=== PATIENT | female | born 1985 | race Caucasian/White ===

== ENCOUNTER 2024-10-12 18:21 | Emergency (ER) | payer OTHER, SELFPAY ==
[2024-10-12 18:31] VITALS: BP 157/96; PULSE 85; RESP 15; TEMP 36.8; O2SAT 100; BMI 31.2
--- NOTE | 2024-10-12 18:33 | XR_ITS ---
PROCEDURE INFORMATION: Exam: XR Left Foot Exam date and time: 10/12/2024 7:12 PM Age: 39 years old Clinical indication: Pain; Foot; Left TECHNIQUE: Imaging protocol: Radiologic exam of the left foot. Views: 3 or more views. COMPARISON: No relevant prior studies available. FINDINGS: Bones/joints: No fracture or malalignment appreciated. Small calcification at the Achilles tendon insertion. Soft tissues: Normal. IMPRESSION: No acute findings.
--- NOTE | 2024-10-12 18:36 | ED_ITS ---
<Statement entered by Olman Suarez MD - 10/13/24 03:19> I was consulted by the DENNISE, and we discussed the complexity of the problems being addressed. I approve the treatment and management plan for this patient's care in the emergency department, thus performing a substantive portion of the medical decision making. Olman Suarez MD Discharge Plan Disposition Patient Disposition: Home, Self-Care Prescriptions Prescriptions: No Action clonazepam 0.5 mg tablet PO sertraline 100 mg tablet PO Patient Comments: TAKE 1.5 TABLETS BY MOUTH EVERY DAY Zepbound 5 mg/0.5 mL pen injector SQ Patient Comments: ADMINISTER 5 MG UNDER THE SKIN 1 TIME A WEEK methylprednisolone [Medrol (Néstor)] 4 mg tablets,dose pack See Rx Instructions PO PER PKG DIR Qty: 21 0RF Rx Instructions: PO PER PKG DIR for 6 days fluticasone propionate [Flonase Allergy Relief] 50 mcg/actuation spray,suspension 2 spray intranasal DAILY Qty: 16 2RF Rx Instructions: administer into each nostril daily amoxicillin-pot clavulanate 875-125 mg tablet 1 tab PO BID 10 Days Qty: 20 0RF Referrals Follow up/Referrals: Azalia Pineda APRN [Primary Care Provider, Medical] - See instructions Activity Restrictions/Add. Instructions Additional Instructions/Restrictions: Please follow-up and do outpatient DVT ultrasound. Follow-up with your PCP for further imaging if needed. Take ibuprofen and Tylenol as needed for pain and swelling. Ice and elevate left foot. Return to the ED for further problems or concerns. Clinical Impressions Clinical Impression: Acute foot pain, Edema Instructions Patient Instructions: Sprain, DI for Foot Pain, Edema Print Language Print Language: Occitan Discharge ED Provider: Olman Suarez General Adult HPI <Beena Munoz (ED), ANIMAL HUMANE AGENT SUPERVISOR - Last Filed: 10/12/24 22:42> General Chief complaint: Extremity Injury, Lower Stated complaint: AO 8-12 left leg foot pain and brus. Time Seen by Provider: 10/12/24 18:26 History of Present Illness HPI narrative: 39-year-old female presents to the ED today for complaint of dropping a welding tank on her left foot yesterday. She has 8 out of 10 pain. She has obvious bruising and redness. She also has a bruise on the medial left knee. She says she noticed this the other day. She says that it is painful at times. She has no pain right at this moment. She says that her family has history of DVTs and PEs and she is concerned about this. She has no personal history of clots. She has no chest pain or shortness of breath. Patient has no recent fevers or chills. No nausea, vomiting or diarrhea. No injury to that left medial knee. She says it used to be a spider vein. Related Data Home Medications ?Medication ?Instructions ?Recorded ?Confirmed clonazepam 0.5 mg tablet mg PO 07/30/24 07/30/24 sertraline 100 mg tablet mg PO 07/30/24 07/30/24 tirzepatide (weight loss) 5 mg/0.5 mg SQ 07/30/2407/02 mL subcutaneous pen injector (Zepbound) Previous Rx's ?Medication ?Instructions ?Recorded amoxicillin 875 mg-potassium 1 tab PO BID 10 days #20 tabs 07/30/24 clavulanate 125 mg tablet fluticasone propionate 50 2 spray intranasal DAILY #16 grams 07/30/24 mcg/actuation nasal spray,suspension (Flonase Allergy Relief) methylprednisolone 4 mg tablets in See Rx Instructions PO PER PKG DIR 07/30/24 a dose pack (Medrol (Nétsor)) #21 tabs Allergies Allergy/AdvReac Type Severity Reaction Status Date / Time No Known Allergies Allergy Verified 07/30/24 14:38 [facility] <Beena Munoz (BERNARDA), ANIMAL HUMANE AGENT SUPERVISOR - Last Filed: 10/12/24 22:42> [facility] Disclaimer: The information contained in this section may have been updated after the patient was seen, as this information can be updated by other users. Medical History (Updated 10/12/24 @ 20:24 by Beena Munoz (ED), ANIMAL HUMANE AGENT SUPERVISOR) Sinusitis Social History (Updated 07/30/24 @ 14:39 by MOISES Penaloza) Smoking Status: Current every day smoker alcohol intake: current current occupational status: employed Travel in the last 8 weeks?: None Have you lived/traveled outside [place] in past 30 days?: No Contact w/someone who lives/traveled outside US past 30 days?: No Exposure to someone with infectious disease in past 14 days?: No Do you have a fever (greater than 100.4 F or 38 C)?: No Have you tested positive for COVID-19?: No Exposed to someone with COVID-19 in past 14 days?: No Do you have a sore throat?: No Do you have a cough?: No Do you have any weakness?: No Do you have any diarrhea?: No Are you experiencing any unusual bleeding?: No Do you have any muscle aches/pain?: No Do you have any abdominal pain?: No Are you experiencing loss of taste or smell?: No <Beena Munoz (ED), ANIMAL HUMANE AGENT SUPERVISOR - Last Filed: 10/12/24 22:42> ROS Obtained: Yes Systems reviewed as appropriate & no additional complaints except as documented Constitutional Constitutional: Reports as per HPI Physical Exam <Beena Munoz (ED), ANIMAL HUMANE AGENT SUPERVISOR - Last Filed: 10/12/24 22:42> General General appearance: alert and in no apparent distress Head Head exam: normocephalic Eye Eye exam: Present PERRL and EOMI ENT ENT exam: Present mucous membranes moist Neck Neck exam: Present full ROM and trachea midline Respiratory Respiratory exam: Present normal lung sounds bilaterally Cardiovascular Cardiovascular exam: Present regular rate, normal rhythm, normal heart sounds, +S1 and +S2 Extremities Exam Extremities exam: Present full ROM, tenderness (Left medial knee with bruising and tenderness, left foot was swelling and erythema), normal capillary refill and edema Neurological Exam Neurological exam: Present alert and oriented X3 Skin Skin exam: Present warm and dry Medical Decision Making <Beena Munoz (ED), ANIMAL HUMANE AGENT SUPERVISOR - Last Filed: 10/12/24 22:42> Medical Records Screening: Per USPSTF and CDC recommendations, given the prevalence of disease in our region, it is our hospital?s policy to screen for HIV and viral Hepatitis for all patients aged 18 and over and those with ongoing risk factors. Gavino Inquiry Pt receiving controlled substance: No Gavino was queried for this patient: No Vital Signs: 10/12/24 18:31 10/12/24 20:25 Temperature 98.3 F 97.9 F Temperature Source Oral Oral Pulse Rate 64 Pulse Rate [Right Radial] 85 Respiratory Rate 15 16 Blood Pressure 112/74 Blood Pressure [Right Arm] 157/96 H Blood Pressure Mean [Right Arm] 116 Blood Pressure Source [Right Arm] Automatic Cuff Blood Pressure Position [Right Arm] Supine 02 Sat by Pulse Oximetry 100 Oxygen Delivery Method Room Air Room Air Lab Data Lab Results 10/12/24 18:44: WBC 6.4, RBC 3.81 L, Hgb 11.5 L, Hct 33.4 L, MCV 87.7, MCH 30.2, MCHC 34.4, RDW 12.9, Plt Count 211, MPV 11.0 H, Neut % (Auto) 61.7, Lymph % (Auto) 27.2, Pike % (Auto) 6.6, Eos % (Auto) 3.4, Baso % (Auto) 0.9, Neut # (Auto) 3.9, Lymph # (Auto) 1.7, Pike # (Auto) 0.4, Eos # (Auto) 0.2, Baso # (Auto) 0.1, D-Dimer 1.04 H, Sodium 138, Potassium 3.2 L, Chloride 108 H, Carbon Dioxide 27, Anion Gap 6.2, BUN 6 L, Creatinine 0.60, Estimated Creat Clear 198, Estimated GFR 110, Est GFR ( Amer) 133, Glucose 105 H, Calcium 8.4, Magnesium 1.8, Total Bilirubin 0.2, AST 20, ALT 15, Alkaline Phosphatase 79, Troponin I < 0.01, Total Protein 5.9 L, Albumin 3.5, Globulin 2.4, Albumin/Globulin Ratio 1.5, Lipase 88, HCV Ab RAOUL w/Rflx PCR Qn Negative, HIV Ag/Ab Combo Qual Negative 10/12/24 18:44 10/12/24 18:44 Orders (Tests/Meds): ED MEDICATIONS Discontinued Medications Generic Name Dose Route Start Last Admin Trade Name Freq PRN Reason Stop Dose Admin Hydrocodone Bitart/Acetaminophen 2 tab 10/12/24 18:35 10/12/24 18:42 Hydrocodone/Apap 5/325 Mg Tablet PO 10/12/24 18:36 Not Given ONCE ONE Ibuprofen 800 mg 10/12/24 18:43 10/12/24 18:55 Ibuprofen 800 Mg Tablet PO 10/12/24 18:44 800 mg ONCE ONE Administration Potassium Chloride 60 meq 10/12/24 19:25 10/12/24 19:58 Potassium Chloride 20meq Tab PO 10/12/24 19:26 60 meq ONCE ONE Administration ORDERS Category Date Time Status Foot XR left minimum 3 views [XR foot LT min 3V] Stat Exams 10/12/24 18:33 Completed POCUS Point of Care (ER Only) Stat Exams 10/12/24 18:33 Completed CBC [Complete Blood Count Auto Diff] Stat Lab 10/12/24 18:44 Completed Comprehensive Metabolic Panel Stat Lab 10/12/24 18:44 Completed D-Dimer Stat Lab 10/12/24 18:44 Completed HIV Combo Stat Lab 10/12/24 18:44 Completed Hepatitis C Ab Qual. W/ RFX Stat Lab 10/12/24 18:44 Completed Lipase Stat Lab 10/12/24 18:44 Completed Magnesium Stat Lab 10/12/24 18:44 Completed Trop I [Troponin I] Stat Lab 10/12/24 18:44 Completed Medical Decision Narrative: patient is a 39-year-old female presenting to the emergency department for evaluation of left foot pain after dropping a welding tank on her foot yesterday and left medial knee bruising with concern for DVT. Patient is hemodynamically stable and nontoxic-appearing upon arrival, afebrile. Differential diagnosis includes DVT, crush injury to left foot, among others. Workup will be conducted with hematologic labs, specific imaging. Initial inventions include analgesics. Initial workup reviewed by me hematologic labs are remarkable for elevated D- dimer however discussed with Dr. Malone who agrees that we can do an outpatient formal ultrasound. His POCUS ultrasound ruled out a clot but still want to be safe in the outpatient formal ultrasound. Patient has no shortness of breath or chest pain. She has no obvious signs of PE no tachycardia no hemoptysis no other signs or symptoms.. POCUS was negative for DVT of left leg. X-ray was negative of left foot. Please see formal read. Patient and I discussed following up with her PCP for any worsening pain or problems. She will do the outpatient DVT ultrasound. She will follow-up with her PCP for further imaging if needed. <Olman Suarez MD - Last Filed: 10/12/24 19:14> Vital Signs: 10/12/24 18:31 10/12/24 20:25 Temperature 98.3 F 97.9 F Temperature Source Oral Oral Pulse Rate 64 Pulse Rate [Right Radial] 85 Respiratory Rate 15 16 Blood Pressure 112/74 Blood Pressure [Right Arm] 157/96 H Blood Pressure Mean [Right Arm] 116 Blood Pressure Source [Right Arm] Automatic Cuff Blood Pressure Position [Right Arm] Supine 02 Sat by Pulse Oximetry 100 Oxygen Delivery Method Room Air Room Air Lab Data Lab Results 10/12/24 18:44: WBC 6.4, RBC 3.81 L, Hgb 11.5 L, Hct 33.4 L, MCV 87.7, MCH 30.2, MCHC 34.4, RDW 12.9, Plt Count 211, MPV 11.0 H, Neut % (Auto) 61.7, Lymph % (Auto) 27.2, Pike % (Auto) 6.6, Eos % (Auto) 3.4, Baso % (Auto) 0.9, Neut # (Auto) 3.9, Lymph # (Auto) 1.7, Pike # (Auto) 0.4, Eos # (Auto) 0.2, Baso # (Auto) 0.1, D-Dimer 1.04 H, Sodium 138, Potassium 3.2 L, Chloride 108 H, Carbon Dioxide 27, Anion Gap 6.2, BUN 6 L, Creatinine 0.60, Estimated Creat Clear 198, Estimated GFR 110, Est GFR ( Amer) 133, Glucose 105 H, Calcium 8.4, Magnesium 1.8, Total Bilirubin 0.2, AST 20, ALT 15, Alkaline Phosphatase 79, Troponin I < 0.01, Total Protein 5.9 L, Albumin 3.5, Globulin 2.4, Albumin/Globulin Ratio 1.5, Lipase 88, HCV Ab RAOUL w/Rflx PCR Qn Negative, HIV Ag/Ab Combo Qual Negative Orders (Tests/Meds): ED MEDICATIONS Discontinued Medications Generic Name Dose Route Start Last Admin Trade Name Freq PRN Reason Stop Dose Admin Hydrocodone Bitart/Acetaminophen 2 tab 10/12/24 18:35 10/12/24 18:42 Hydrocodone/Apap 5/325 Mg Tablet PO 10/12/24 18:36 Not Given ONCE ONE Ibuprofen 800 mg 10/12/24 18:43 10/12/24 18:55 Ibuprofen 800 Mg Tablet PO 10/12/24 18:44 800 mg ONCE ONE Administration Potassium Chloride 60 meq 10/12/24 19:25 10/12/24 19:58 Potassium Chloride 20meq Tab PO 10/12/24 19:26 60 meq ONCE ONE Administration ORDERS Category Date Time Status Foot XR left minimum 3 views [XR foot LT min 3V] Stat Exams 10/12/24 18:33 Completed POCUS Point of Care (ER Only) Stat Exams 10/12/24 18:33 Completed CBC [Complete Blood Count Auto Diff] Stat Lab 10/12/24 18:44 Completed Comprehensive Metabolic Panel Stat Lab 10/12/24 18:44 Completed D-Dimer Stat Lab 10/12/24 18:44 Completed HIV Combo Stat Lab 10/12/24 18:44 Completed Hepatitis C Ab Qual. W/ RFX Stat Lab 10/12/24 18:44 Completed Lipase Stat Lab 10/12/24 18:44 Completed Magnesium Stat Lab 10/12/24 18:44 Completed Trop I [Troponin I] Stat Lab 10/12/24 18:44 Completed Procedures <Olman Suarez MD - Last Filed: 10/12/24 19:14> Limited Ultrasound Interpretation:: Indication: Limited compression ultrasonography of the left lower extremity was performed to evaluate for non-compressibility of the deep veins in the patient. The ultrasound was performed with the following indications, as noted in the H&P: Left leg pain and bruising Identified structures: Left common femoral vein, femoral vein, popliteal vein were examined. Findings: Lower Extremity: Left CFV: Good compressibility Left FV good compressibility Left Popliteal vein: Good compressibility Impression: Normal DVT ultrasound Images were saved to permanent archive The study was technically adequate CPT: 20930-40-AX This study was performed by me, and I personally interpreted all images/videos. Based on my clinical judgement, these images were adequate and did not necessitate further imaging. Critical Care <Beena Munoz (BERNARDA), ANIMAL HUMANE AGENT SUPERVISOR - Last Filed: 10/12/24 22:42> Critical Care Time Critical Care Time: No
[2024-10-12] MEDS: IBUPROFEN 800 MG TABLET PO (18:55)
[2024-10-12 18:56] LABS: Hematocrit 33.4 % (37.0-47.0); Hemoglobin 11.5 g/dL (12.2-16.2); Immature Granulocytes % 0.2 %; Mean Corpuscular HGB Conc 34.4 g/dL (31.8-35.4); Mean Corpuscular Hemoglobin 30.2 pg (27.0-31.2); Mean Corpuscular Volume 87.7 fl (81-99); Nucleated Red Blood Cells % 0 %; Platelet Count 211 K/mm3 (142-424); Red Blood Count 3.81 M/mm3 (4.20-5.40); Red Cell Distribution Width-SD 41.0 fL; White Blood Count 6.4 K/mm3 (4.8-10.8)
[2024-10-12 19:06] LABS: Alanine Aminotransferase 15 U/L (12-78); Albumin Level 3.5 g/dl (3.5-5.0); Albumin/Globulin Ratio 1.5 (1.1-1.8); Alkaline Phosphatase 79 U/L (38-126); Anion Gap 6.2 mEq/L (5-15); Aspartate Amino Transferase 20 U/L (14-36); Bilirubin,Total 0.2 mg/dl (0.2-1.3); Blood Urea Nitrogen 6 mg/dl (7-17); Calcium 8.4 mg/dl (8.4-10.2); Carbon Dioxide 27 mmol/L (22.0-30.0); Chloride 108 mmol/L (98-107); Creatinine Clearance Estimated 198 mL/min (50-200); Creatinine,Serum 0.60 mg/dl (0.52-1.04); Estimated Glomerular Filt Rate 110 ml/min (>60); GFR (African American) 133 ML/MIN (>60); Globulin 2.4 g/dL (1.3-3.2); Glucose 105 mg/dl (74-100); Lipase 88 U/L (23-300); Magnesium 1.8 mg/dl (1.6-2.3); Potassium 3.2 mmoL/L (3.5-5.1); Sodium 138 mmol/L (136-145); Total Protein,Serum 5.9 g/dl (6.3-8.2)
[2024-10-12 19:10] LABS: D-Dimer 1.04 ug/mL (0.0-0.5)
[2024-10-12 19:20] LABS: Troponin I < 0.01 ng/ml (0.00-0.034)
[2024-10-12] MEDS: POTASSIUM CHLORIDE 20MEQ TAB 60 MEQ PO (19:58)
[2024-10-12 20:25] VITALS: BP 112/74; PULSE 64; RESP 16; TEMP 36.6; O2SAT 98
[2024-10-12 21:11] LABS: Hepatitis C Ab Qual. W/ RFX NEGATIVE (Negative)
== END 2024-10-12 20:45 | disposition home or self-care (01) ==
PROVIDERS: Nurse Practitioner; Emergency Provider Student in an Organized Health Care Education/Training Program; PCP Nurse Practitioner Family
DX: M79.672 Pain in left foot (principal); R60.0 Localized edema; F17.210 Nicotine dependence, cigarettes, uncomplicated
CPT/HCPCS: 73630; 80053; 83690; 83735; 84484; 85025; 85378; 86803; 87389; 99284

== ENCOUNTER 2024-11-20 09:32 | Emergency (ER) | payer OTHER, SELFPAY ==
[2024-11-20] VITALS (13 sets, daily range): BP systolic 117–144; BP diastolic 68–88; PULSE 58–82; RESP 16; TEMP 36.6–36.9; O2SAT 96–100; BMI 30.7
--- NOTE | 2024-11-20 09:58 | CT_ITS ---
PROCEDURE INFORMATION: Exam: CT Chest With Contrast; Diagnostic Exam date and time: 11/20/2024 11:34 AM Age: 39 years old Clinical indication: Other: Lump in neck, fatiigue, aches; Additional info: Lump in neck, subacute TECHNIQUE: Imaging protocol: Diagnostic computed tomography of the chest with contrast. Radiation optimization: All CT scans at this facility use at least one of these dose optimization techniques: automated exposure control; mA and/or kV adjustment per patient size (includes targeted exams where dose is matched to clinical indication); or iterative reconstruction. Contrast material: ISOVUE; Contrast volume: 75 ml; Contrast route: IV; COMPARISON: CT SOFT TISSUE NECK W CON 11/20/2024 11:27 AM FINDINGS: Thyroid: Thyroid gland appears enlarged. Contour is lobulated. 1.5 x 1.5 x 1.7 cm low-density nodule is present within the mid to upper pole of the right lobe of the thyroid. Small punctate calcification is present along the periphery of the left lobe of the thyroid. Follow-up thyroid ultrasound is recommended. Lungs: 4.5 mm pleural-based nodule within the posteromedial aspect of the right lung apex (image 14 of series 5). 2.5 mm nodule within the medial aspect of the right upper lobe (image 32 of series 5). 4.2 mm subpleural nodule within the periphery of the right upper lobe (image 35 of series 5). A 3 mm nodule within the inferior aspect of the right upper lobe (image 40 of series 5). Small 3 mm nodule within the medial aspect of the left upper lobe (image 24 of series 5). Small 2.1 mm nodule within the periphery of the left upper lobe (image 24 series 5). 2.2 mm nodule within the left upper lobe (image 46 of series 5). Small 11 mm bleb is present within the left lower lobe (image 56 of series 5). Bandlike atelectatic changes are present within the posteromedial aspect of the right and left lower lobe. Small 3.4 mm nodule or areas of postinflammatory change within the medial aspect of the left lower lobe (image 69 of series 5). Pleural spaces: No pleural effusion or pneumothorax. Heart: Heart size is normal. No pericardial effusion. Coronary arteries: No coronary artery calcifications identified. Lymph nodes: There are no enlarged supraclavicular lymph nodes. No mediastinal mass, lymphadenopathy or suspicious fluid collection. No hilar mass. Vasculature: Normal caliber of the ascending and descending thoracic aorta. Aortic arch appears unremarkable. No evidence for dissection. Origins of the great vessels are patent. Mild fullness of the main pulmonary artery. No central pulmonary embolism. This exam is not optimized to evaluate for pulmonary embolism. Kidneys: Dense material within the right and left renal collecting system more likely corresponds to contrast material. Heterogeneous appearance of the upper pole of the right kidney. Visualized portion of the right kidney appears somewhat atrophic. Bones/joints: There are no suspicious lytic or sclerotic bone lesions. No acute fracture. Soft tissues: No axillary mass or lymphadenopathy. Overlying soft tissues are unremarkable. IMPRESSION: 1. There are a few scattered small pulmonary nodule within the right and left lung as described. Largest measures up to 4.2 mm. For patients at low risk (minimal or absent history of smoking and of other known risk factors), no routine follow-up is indicated. For patients at high risk (history of smoking or of other known risk factors), consider CT Chest at 12 months or sooner depending on patient's underlying risk factors. (Reference: Miah) 2. Thyroid gland appears enlarged and slightly lobulated. Single low-density nodule is present within the mid to upper aspect of the right lobe of the thyroid. This measures up to 1.7 cm. Correlation with thyroid function tests and follow-up thyroid ultrasound is recommended. 3. No mediastinal mass or lymphadenopathy. 4. Please see report from CT scan of the abdomen and pelvis performed same day November 20, 2024 for additional information. COMMENTS: Consistent with the [place] [employer]'s Incidental Findings Committee white paper (J Am Susan Radiol 2015): In patients aged 35 years and older with an incidental thyroid nodule equal to or greater than 1.[address], MRI or extrathyroidal US, further evaluation with dedicated thyroid US is recommended for patients with normal life expectancy and without comorbidities. For smaller nodules without suspicious features, no further evaluation or follow up is recommended. REFERENCES: Miah Leon et al. Guidelines for Management of Incidental Pulmonary Nodules Detected on CT Images: From the Fleischner Society 2017. Radiology. 2017;284(1):228-243.
--- NOTE | 2024-11-20 09:58 | CT_ITS ---
PROCEDURE INFORMATION: Exam: CT Neck With Contrast Exam date and time: 11/20/2024 11:27 AM Age: 39 years old Clinical indication: Mass, lump, or swelling in neck; Anterior; Additional info: Lump adjacent to R thyroid TECHNIQUE: Imaging protocol: Computed tomography of the neck with contrast. Radiation optimization: All CT scans at this facility use at least one of these dose optimization techniques: automated exposure control; mA and/or kV adjustment per patient size (includes targeted exams where dose is matched to clinical indication); or iterative reconstruction. Contrast material: ISOVUE; Contrast volume: 75 ml; Contrast route: IV; COMPARISON: CT HEAD/BRAIN WO/W CON 11/20/2024 11:27 AM FINDINGS: Paranasal sinuses: Polypoid disease is noted in the floor of the right maxillary antrum. Nasal cavity: There is leftward convexity deviation of the nasal septum. Salivary glands: Normal. Glands are normal in size. Pharynx: Unremarkable. No significant tonsillar enlargement. Larynx: Unremarkable. Epiglottis is normal. Thyroid: There is nodular enlargement of the thyroid gland including a dominant hypodense lesion in the anterior midportion measuring 16 x 15 x 18 mm. Suggest correlation with thyroid ultrasound. Trachea: Visualized trachea is unremarkable. Lungs: Unremarkable as visualized. Lymph nodes: Unremarkable. No lymphadenopathy. Bones/joints: Unremarkable. No acute fracture. Soft tissues: Unremarkable. No significant soft tissue swelling. IMPRESSION: Nodular goiter. Please correlate with dedicated thyroid ultrasound. Otherwise no suspicious soft tissue mass, drainable fluid collection or lymphadenopathy in the neck.
--- NOTE | 2024-11-20 09:58 | CT_ITS ---
PROCEDURE INFORMATION: Exam: CT Abdomen And Pelvis With Contrast Exam date and time: 11/20/2024 11:34 AM Age: 39 years old Clinical indication: Other: Lump in neck, fatiigue, aches TECHNIQUE: Imaging protocol: Computed tomography of the abdomen and pelvis with contrast. Radiation optimization: All CT scans at this facility use at least one of these dose optimization techniques: automated exposure control; mA and/or kV adjustment per patient size (includes targeted exams where dose is matched to clinical indication); or iterative reconstruction. Contrast material: ISOVUE; Contrast volume: 75 ml; Contrast route: IV; COMPARISON: CT CHEST W CON 11/20/2024 11:34 AM FINDINGS: Diaphragm: No large hiatal hernia. Liver: Mild decreased density throughout the liver in keeping with fatty infiltration. No suspicious mass or lesion within the liver. Liver surface is smooth. Gallbladder and biliary ducts: The gallbladder is unremarkable. No biliary ductal dilatation. Common bile duct is normal in caliber. Pancreas: The pancreas is unremarkable. Spleen: Spleen is upper limits for normal in size measuring up to 14 cm in craniocaudal length. No suspicious mass or lesion within the spleen. Adrenal glands: No adrenal mass. Kidneys and ureters: Right kidney appears somewhat atrophic. Cortical margin is lobulated with several small cortical defects which may correspond to small prior infarcts, prior infection or prior trauma. Please correlate with patient's history. 1.8 cm exophytic cyst is present along the lower pole of the right kidney. 1.5 cm circumscribed cyst is present within the mid aspect of the left kidney. These appear benign. No solid suspicious renal mass. Contrast material is present within the right and left renal collecting system which limits evaluation for renal calculi. Heterogeneous enhancement and contour of the upper pole of the right kidney . No hydronephrosis. Ureters appear unremarkable. Stomach and bowel: Stomach appears unremarkable. There are a few scattered mildly distended small bowel loops within the left upper abdomen. Potential small duodenal diverticulum is present along the distal aspect of the duodenum. No evidence of a small bowel obstruction. There are a few scattered diverticula along the colon. No evidence for acute colitis or acute diverticulitis. Appendix: Normal appendix. Intraperitoneal space: No free fluid or free intraperitoneal air. Vasculature: The aorta is unremarkable . Major branch vessels are patent. Iliac arteries are patent. Lymph nodes: There are no enlarged or suspicious intra-abdominal or retroperitoneal lymph nodes. Minimally prominent right and left pelvic sidewall lymph nodes are present. No inguinal lymphadenopathy. Urinary bladder: Apparent mild circumferential bladder wall thickening. No focal mass or bladder calculus. Findings may correspond to mild bladder wall trabeculation. Please correlate with any clinical concern for urinary tract infection. Reproductive: Uterus appears unremarkable. No suspicious adnexal mass. Bones/joints: There are no suspicious lytic or sclerotic bone lesions. No acute fracture. No areas of severe central spinal canal stenosis. Soft tissues: Mild diastasis recti. No large ventral hernia. Abdominal wall musculature is symmetric. IMPRESSION: 1. No acute findings within the abdomen or pelvis. No focal inflammatory process or free fluid. No suspicious mass or suspicious lymphadenopathy. 2. Fatty liver. 3. Spleen measures up to 14.0 cm in craniocaudal length. No suspicious mass or lesion within the spleen. 4. Atrophic and lobulated appearance of the right kidney which may correspond to sequela of prior trauma, infection or prior infarct. Small bilateral renal cysts are present. No solid suspicious renal mass. Heterogeneous appearance of the upper pole of the right kidney may correspond to sequela of prior infection, ischemia or trauma. Please correlate with patient's history. 5. Minimal circumferential bladder wall thickening which is somewhat nonspecific and could correspond to bladder wall trabeculation. Please correlate with any clinical concern for cystitis. 6. Please see report from CT scan of the chest performed same day November 20, 2024 for additional information. COMMENTS: Consistent with the [employer]'s Incidental Findings Committee white paper (J Am Susan Radiol 2018): Any incidental renal lesion less than 1 cm or classified as too small to characterize, or any incidental cystic renal lesion characterized as simple-appearing, is likely benign. No follow-up imaging is recommended for these lesions per consensus recommendations based on imaging criteria.
--- NOTE | 2024-11-20 10:00 | CT_ITS ---
PROCEDURE INFORMATION: Exam: CT Head Without And With Contrast Exam date and time: 11/20/2024 11:27 AM Age: 39 years old Clinical indication: Other: Lump in neck, fatiigue, aches; Additional info: Rodas/lump in neck TECHNIQUE: Imaging protocol: Computed tomography of the head without and with contrast. Radiation optimization: All CT scans at this facility use at least one of these dose optimization techniques: automated exposure control; mA and/or kV adjustment per patient size (includes targeted exams where dose is matched to clinical indication); or iterative reconstruction. Contrast material: ISOVUE; Contrast volume: 75 ml; Contrast route: IV; COMPARISON: CT HEAD/BRAIN WO/W CON 11/20/2024 11:27 AM FINDINGS: Brain: No acute lobar infarct. No hemorrhage. Unremarkable white matter. No mass effect. Cerebral ventricles: No ventriculomegaly. Paranasal sinuses: Polypoid disease is noted in the floor of the right maxillary antrum. Mastoid air cells: Visualized mastoid air cells are well aerated. Bones: Unremarkable. No acute fracture. Soft tissues: Unremarkable. IMPRESSION: No acute intracranial process.
--- NOTE | 2024-11-20 10:01 | HMH.EDGENADL ---
Discharge Plan Disposition Patient Disposition: Home, Self-Care Prescriptions Prescriptions: No Action clonazepam 0.5 mg tablet PO sertraline 100 mg tablet PO Patient Comments: TAKE 1.5 TABLETS BY MOUTH EVERY DAY Zepbound 5 mg/0.5 mL pen injector SQ Patient Comments: ADMINISTER 5 MG UNDER THE SKIN 1 TIME A WEEK methylprednisolone [Medrol (Néstor)] 4 mg tablets,dose pack See Rx Instructions PO PER PKG DIR Qty: 21 0RF Rx Instructions: PO PER PKG DIR for 6 days fluticasone propionate [Flonase Allergy Relief] 50 mcg/actuation spray,suspension 2 spray intranasal DAILY Qty: 16 2RF Rx Instructions: administer into each nostril daily amoxicillin-pot clavulanate 875-125 mg tablet 1 tab PO BID 10 Days Qty: 20 0RF Referrals Follow up/Referrals: Lincoln Jimenez MD [Physician, Ear, Nose, Throat] - See instructions Azalia Pineda APRN [Primary Care Provider, Medical] - See instructions Activity Restrictions/Add. Instructions Additional Instructions/Restrictions: At this time it was felt you are safe to be discharged home. If new or worsening symptoms please do not hesitate to return the emergency department. Please discontinue your tirzepatide immediately. Do not take any GLP-1 drugs ever again unless this workup related to your thyroid proves that this drug is not the problem. Please follow-up with your family doctor within the next week to schedule a thyroid ultrasound and call and schedule appoint with Dr. Jimenez as soon as you are able. You had a spot on your lungs noticed that is called a pulmonary nodule most of these in [place] are completely benign just have your family doctor keep an eye on this. Clinical Impressions Clinical Impression: Goiter, nodular, Adverse effects of medication, Pulmonary nodule Print Language Print Language: Belarusian Discharge ED Provider: Alvarez Ceron General Adult HPI General Chief complaint: PAIN Stated complaint: body aches Time Seen by Provider: 11/20/24 09:40 Mode of Arrival: Ambulatory Source of Information: Patient Description of Symptoms (Recalled from ER Triage Doc. by RN): Patient presents to ED for painful swollen lymph node for several weeks. Patient reports yesterday she started with body aches and a headache. Denies fevers. History of Present Illness HPI narrative: Patient is a 39-year-old female multi pack-year smoking history on Zepbound who presents emergency department for evaluation of a lump in her neck and generally feeling unwell. Patient has had a progressive lump in the middle right of her neck over the last 3 to 4 weeks, over the last 48 hours she can feel it while she swallows but does not have any true odynophagia. She has lost 60 pounds on Zepbound recently. No overt chest pain or abdominal pain. She has a holocranial headache over the last 24 hours that is not modifiable, no vomiting or vision changes reported. No other acute complaints at this time. Please note that above description of symptoms, in this electronic medical record under categorization of recalled from ER triage doctor by RN are reflective of an initial nursing assessment, however, is not reflective of my full history and physical exam that was personally taken and clarified. Consequentially, this preceding description of symptoms, which may include the patient's categorized chief complaint in the EMR, do not reflect my personal clinical impression, and the ultimate description of history of present illness and patient stated complaints should be deferred to this section of the note. Unless stated otherwise or congruent with this section of the note, additional signs, symptoms, or incongruence should be interpreted as inaccurate with my clinical impression. Related Data Home Medications ?Medication ?Instructions ?Recorded ?Confirmed clonazepam 0.5 mg tablet mg PO 07/30/24 07/30/24 sertraline 100 mg tablet mg PO 07/30/24 07/30/24 tirzepatide (weight loss) 5 mg/0.5 mg SQ 07/30/24 07/30/24 mL subcutaneous pen injector (Zepbound) Previous Rx's ?Medication ?Instructions ?Recorded amoxicillin 875 mg-potassium 1 tab PO BID 10 days #20 tabs 07/30/24 clavulanate 125 mg tablet fluticasone propionate 50 2 spray intranasal DAILY #16 grams 07/30/24 mcg/actuation nasal spray,suspension (Flonase Allergy Relief) methylprednisolone 4 mg tablets in See Rx Instructions PO PER PKG DIR 07/30/24 a dose pack (Medrol (Néstor)) #21 tabs Allergies Allergy/AdvReac Type Severity Reaction Status Date / Time No Known Allergies Allergy Verified 07/30/24 14:38 [facility] Disclaimer: The information contained in this section may have been updated after the patient was seen, as this information can be updated by other users. Medical History (Updated 11/20/24 @ 13:36 by Alvarez Ceron MD) Sinusitis Family History (Updated 11/20/24 @ 09:42 by Lesly Zavala RN) Other No significant family history Social History Smoking Status: Current every day smoker alcohol intake: current current occupational status: employed Travel in the last 8 weeks?: None Have you lived/traveled outside US in past 30 days?: No Contact w/someone who lives/traveled outside US past 30 days?: No Exposure to someone with infectious disease in past 14 days?: No Do you have a fever (greater than 100.4 F or 38 C)?: No Have you tested positive for COVID-19?: No Exposed to someone with COVID-19 in past 14 days?: No Do you have a sore throat?: No Do you have a cough?: No Do you have any weakness?: No Do you have any diarrhea?: No Are you experiencing any unusual bleeding?: No Do you have any muscle aches/pain?: No Do you have any abdominal pain?: No Are you experiencing loss of taste or smell?: No ROS Obtained: Yes Systems reviewed as appropriate & no additional complaints except as documented Physical Exam General General appearance: alert and in no apparent distress Head Head exam: atraumatic and normocephalic Eye Eye exam: Present PERRL and EOMI ENT ENT exam: Present normal oropharynx and mucous membranes moist Neck Neck exam: Present other (Indurated lump about the thyroid offset just to the right. No overlying erythema) Chest Chest inspection: Present normal inspection and symmetric chest wall rise Respiratory Respiratory exam: Present normal lung sounds bilaterally; Absent respiratory distress or accessory muscle use Cardiovascular Cardiovascular exam: Present regular rate and normal rhythm Abdominal Exam Abdominal exam: Present soft; Absent tenderness Extremities Exam Extremities exam: Present normal inspection Neurological Exam Neurological exam: Present alert and CN II-XII intact; Absent motor sensory deficit Psychiatric Psychiatric exam: Present normal affect Skin Skin exam: Present warm and dry Medical Decision Making Medical Records Screening: Per USPSTF and CDC recommendations, given the prevalence of disease in our region, it is our hospital?s policy to screen for HIV and viral Hepatitis for all patients aged 18 and over and those with ongoing risk factors. Gavino Inquiry Pt receiving controlled substance: No Vital Signs: 11/20/24 09:40 11/20/24 09:41 11/20/24 09:41 Temperature 98.4 F 98.4 F Temperature Source Oral Pulse Rate 78 82 Pulse Rate [Right] 82 Respiratory Rate 16 16 Blood Pressure 126/74 127/79 Blood Pressure [Left Arm] 127/79 Blood Pressure Mean [Left Arm] 95 02 Sat by Pulse Oximetry 99 98 98 Oxygen Delivery Method 11/20/24 10:00 11/20/24 10:20 11/20/24 10:40 Temperature Temperature Source Pulse Rate 75 67 62 Pulse Rate [Right] Respiratory Rate Blood Pressure 123/70 125/74 117/74 Blood Pressure [Left Arm] Blood Pressure Mean [Left Arm] 02 Sat by Pulse Oximetry 98 98 98 Oxygen Delivery Method 11/20/24 11:00 11/20/24 11:40 11/20/24 12:00 Temperature Temperature Source Pulse Rate 59 L 66 60 Pulse Rate [Right] Respiratory Rate Blood Pressure 120/74 127/69 119/68 Blood Pressure [Left Arm] Blood Pressure Mean [Left Arm] 02 Sat by Pulse Oximetry 97 98 100 Oxygen Delivery Method Room Air 11/20/24 12:20 11/20/24 12:40 11/20/24 13:00 Temperature Temperature Source Pulse Rate 59 L 58 L 65 Pulse Rate [Right] Respiratory Rate Blood Pressure 126/72 144/88 H 130/82 Blood Pressure [Left Arm] Blood Pressure Mean [Left Arm] 02 Sat by Pulse Oximetry 97 99 98 Oxygen Delivery Method Room Air 11/20/24 13:20 Temperature Temperature Source Pulse Rate 63 Pulse Rate [Right] Respiratory Rate Blood Pressure 144/76 H Blood Pressure [Left Arm] Blood Pressure Mean [Left Arm] 02 Sat by Pulse Oximetry 99 Oxygen Delivery Method Room Air Lab Data Lab Results 11/20/24 10:12: SARS-CoV-2 (PCR) Not detected, Influenza A Untype (PCR) Not detected, Influenza Type B (PCR) Not detected 11/20/24 10:15: WBC 6.9, RBC 4.15 L, Hgb 12.4, Hct 36.8 L, MCV 88.7, MCH 29.9, MCHC 33.7, RDW 12.5, Plt Count 236, MPV 10.8 H, Neut % (Auto) 67.1, Lymph % (Auto) 20.6, Woodruff % (Auto) 8.3, Eos % (Auto) 3.2, Baso % (Auto) 0.7, Neut # (Auto) 4.6, Lymph # (Auto) 1.4, Woodruff # (Auto) 0.6, Eos # (Auto) 0.2, Baso # (Auto) 0.1, Sodium 139, Potassium 3.5, Chloride 104, Carbon Dioxide 27, Anion Gap 11.5, BUN 8, Creatinine 0.70, Estimated Creat Clear 167, Estimated GFR 92, Est GFR ( Amer) 112, Glucose 84, Uric Acid 4.9, Calcium 9.0, Magnesium 2.0, Total Bilirubin 0.9, AST 25, ALT 11 L, Alkaline Phosphatase 67, Lactate Dehydrogenase 172 L, Total Creatine Kinase 113, Total Protein 7.0, Albumin 4.3, Globulin 2.7, Albumin/Globulin Ratio 1.6, Lipase 35, TSH 0.49, Free T4 1.01, Serum HCG, Qual Negative 11/20/24 10:15 11/20/24 10:15 Orders (Tests/Meds): ED MEDICATIONS Generic Name Dose Route Start Last Admin Trade Name Freq PRN Reason Stop Dose Admin Sodium Chloride 10 ml 11/20/24 11:31 11/20/24 11:32 Sodium Chloride 0.9% 10ml Syr (Rad Only) IV 12/20/24 11:30 10 ml NEEDED PRN Administration Maintain IV Site Discontinued Medications Generic Name Dose Route Start Last Admin Trade Name Freq PRN Reason Stop Dose Admin Acetaminophen 1,000 mg 11/20/24 09:58 11/20/24 10:30 Acetaminophen 500mg Tab PO 11/20/24 09:59 1,000 mg ONCE ONE Administration Lactated Ringer's 1,000 mls @ 999 mls/hr 11/20/24 10:01 11/20/24 12:32 Lactated Ringer's 1000 Ml Bag IV 11/20/24 11:01 Infused .Q1H1M ONE Infusion Iopamidol 150 ml 11/20/24 11:31 11/20/24 11:32 Iopamidol-370 (76%);100ml Bottle IV 11/20/24 11:32 150 ml ONCE ONE Administration Ketorolac Tromethamine 30 mg 11/20/24 09:58 11/20/24 10:30 Ketorolac 30mg/Ml Vial IV 11/20/24 09:59 30 mg ONCE ONE Administration ORDERS Category Date Time Status CT abdomen pelvis w con Stat Cat Scan 11/20/24 09:[address] chest w con Stat Cat Scan 11/20/24 09:[address] head/brain wo/w con Stat Cat Scan 11/20/24 10:[address] soft tissue neck w con Stat Cat Scan 11/20/24 09:58 Completed CBC w/Auto Diff [Complete Blood Count Auto Diff] Stat Lab 11/20/24 10:15 Completed CK [Creatine Kinase] Stat Lab 11/20/24 10:15 Completed CMP [Comprehensive Metabolic Panel] Stat Lab 11/20/24 10:15 Completed Free T4 (Free Thyroxine) Stat Lab 11/20/24 10:15 Completed HCG Qualitative, Serum Stat Lab 11/20/24 10:15 Completed LDH [Lactate Dehydrogenase] Stat Lab 11/20/24 10:15 Completed Lipase Stat Lab 11/20/24 10:15 Completed MG [Magnesium] Stat Lab 11/20/24 10:15 Completed Rapid PCR Covid and Flu A/B Stat Lab 11/20/24 10:12 Completed TSH [Thyroid Stimulating Hormone] Stat Lab 11/20/24 10:15 Completed Uric Acid Stat Lab 11/20/24 10:15 Completed Medical Decision Narrative: In summary patient is a 39-year-old female past medical history described above who presents emergency department for evaluation of a lump in her neck diffuse body aches, holocranial headache that is nonmodifiable. Patient is hemodynamically stable and nontoxic. Upon arrival, afebrile with a nonfocal neurologic exam. Given the subacute nature of her lump in her neck and smoking history malignancy is on the differential, also could be a benign thyroid nodule versus mass, viral syndrome with adenitis, among others. Workup in totality will be conducted with broad hematologic labs CT of the head through the pelvis screening for malignancy. Initial inventions include multimodal pain control and crystalloid bolus. Initial hematologic labs reviewed by me send no significant leukocytosis no transfusable anemia no DEISI no critical electrolyte abnormality. hCG negative viral swab negative. Noncontrasted CT scan of the head informally visualized by me no acute large intra-axial hemorrhage or midline shift. CT neck shows nodule on the right. Formal read shows nodular goiter which thyroid dedicated ultrasound was recommended no drainable fluid collection. No lymphadenopathy in the neck. Thyroid studies normal. CT chest has a few pulmonary nodules nonspecific no mediastinal mass or lymphadenopathy. CT abdomen pelvis no acute findings fatty liver no suspicious masses in the spleen. All these findings as well as my concern for thyroid cancer in the setting of GLP-1 were relayed to the patient. I instructed the patient to follow-up with PCP for thyroid ultrasound and then follow-up with ENT for definitive evaluation and management. All questions were answered at bedside and patient was given return precautions and verbalized understanding. Critical Care Critical Care Time Critical Care Time: No
[2024-11-20 10:15] LABS: Coronavirus 19, PCR Not Detected (NotDetected); Influenza A, PCR Not Detected (NotDetected); Influenza B, PCR Not Detected (NotDetected)
[2024-11-20] MEDS: LACTATED RINGERS 1000ML 1,000 ML 999 ML IV (10:29)
[2024-11-20 10:30] LABS: Hematocrit 36.8 % (37.0-47.0); Hemoglobin 12.4 g/dL (12.2-16.2); Immature Granulocytes % 0.1 %; Mean Corpuscular HGB Conc 33.7 g/dL (31.8-35.4); Mean Corpuscular Hemoglobin 29.9 pg (27.0-31.2); Mean Corpuscular Volume 88.7 fl (81-99); Nucleated Red Blood Cells % 0 %; Platelet Count 236 K/mm3 (142-424); Red Blood Count 4.15 M/mm3 (4.20-5.40); Red Cell Distribution Width-SD 40.7 fL; White Blood Count 6.9 K/mm3 (4.8-10.8)
[2024-11-20] MEDS: KETOROLAC 30MG/ML VIAL 30 MG IV (10:30)
[2024-11-20] MEDS: ACETAMINOPHEN 500MG TAB 1000 MG PO (10:30)
[2024-11-20 11:10] LABS: Albumin Level 4.3 g/dl (3.5-5.0)
[2024-11-20 11:11] LABS: Chloride 104 mmol/L (98-107); HCG Qualitative, Serum Negative (Negative); Potassium 3.5 mmoL/L (3.5-5.1); Sodium 139 mmol/L (136-145)
[2024-11-20 11:13] LABS: Alanine Aminotransferase 11 U/L (12-78); Alkaline Phosphatase 67 U/L (38-126); Aspartate Amino Transferase 25 U/L (14-36); Bilirubin,Total 0.9 mg/dl (0.2-1.3); Blood Urea Nitrogen 8 mg/dl (7-17); Creatinine Clearance Estimated 167 mL/min (50-200); Creatinine,Serum 0.70 mg/dl (0.52-1.04); Estimated Glomerular Filt Rate 92 ml/min (>60); GFR (African American) 112 ML/MIN (>60)
[2024-11-20 11:14] LABS: Albumin/Globulin Ratio 1.6 (1.1-1.8); Anion Gap 11.5 mEq/L (5-15); Calcium 9.0 mg/dl (8.4-10.2); Carbon Dioxide 27 mmol/L (22.0-30.0); Creatine Kinase 113 U/L (30-135); Globulin 2.7 g/dL (1.3-3.2); Glucose 84 mg/dl (74-100); Lipase 35 U/L (23-300); Magnesium 2.0 mg/dl (1.6-2.3); Total Protein,Serum 7.0 g/dl (6.3-8.2); Uric Acid 4.9 mg/dl (2.5-6.2)
[2024-11-20 11:31] LABS: Free T4 (Free Thyroxine) 1.01 ng/dl (0.78-2.19)
[2024-11-20] MEDS: IOPAMIDOL-370 (76%);100ML BOTTLE 150 ML IV (11:32)
[2024-11-20] MEDS: SODIUM CHLORIDE 0.9% 10ML SYR (RAD ONLY) 10 ML IV (11:32)
[2024-11-20 11:45] LABS: Thyroid Stimulating Hormone 0.49 uIU/mL (0.465-4.68)
== END 2024-11-20 13:47 | disposition home or self-care (01) ==
PROVIDERS: Emergency Provider Emergency Medicine; PCP Nurse Practitioner Family
DX: G44.89 Other headache syndrome (principal); E04.9 Nontoxic goiter, unspecified; R91.8 Other nonspecific abnormal finding of lung field; F17.210 Nicotine dependence, cigarettes, uncomplicated
CPT/HCPCS: 70470; 70491; 71260; 74177; 80053; 82550; 83615; 83690; 83735; 84439; 84443; 84550; 84703; 85025; 87636; 96361; 96374; 99285; J1885; J7120; Q9967

== ENCOUNTER 2024-11-30 14:28 | Outpatient (CLI) | payer OTHER, SELFPAY ==
--- NOTE | 2024-11-30 14:32 | US_ITS ---
FINAL REPORT TECHNIQUE: Real-time grayscale and color ultrasound of the thyroid was performed. CLINICAL HISTORY: THYROID NODULE COMPARISON: None FINDINGS: The thyroid gland measures 5.4 x 2.3 x 2.3 cm on the right and 5.0 x 1.3 x 1.9 on the left. The isthmus measures 3 mm. The parenchyma is unremarkable . Nodules: Multiple nodules are seen bilaterally. Right dominant lesion is a 1.8 x 1.6 cm TR 3, partially cystic and partially solid. Left dominant lesions include a 1.0 cm hypoechoic solid TR4 lesion. There is also a 1.2 cm hypoechoic solid TR4 lesion in the mid left lobe. IMPRESSION: 1.8 cm TR 3 right and 1.2 cm TR 4 left thyroid nodules. Recommend follow-up in 1 year per TI-RADS criteria. Reviewed, Interpreted and Dictated by Karl Mills MD Transcribed by Shellie Quezada Authenticated and [facility]
--- NOTE | 2024-11-30 14:44 | CA_ITS ---
APPROVED REPORT EXAM: Comprehensive 2D, Doppler, and color-flow Echocardiogram Bridal Consultant: Liliana Thakkar, RCS, RVS Ht: 5 ft 9 in Wt: 220lbs BSA: 2.15 BP: 144/76 mmHg Indications: S3 gallop, Smoker 2D Dimensions Left Atrium 2.71 cm F: 2.7 - 3.8 EF AP4 57.80 % GL Strain -24.6 % M-Mode Dimensions RVDd 2.18 cm (0.9-2.6) LA Diam 3.37 cm (1.9-4.0) LVDd 5.29 cm (3.5-5.7) LVDs 3.29 cm (3.5-5.7) IVSd 0.71 cm (0.6-1.1) PWd 0.86 cm (0.6-1.1) EF (Teich) 67.50% EPSs 0.22 cm FS 37.80% EDV (Teich) 134.80 mL TAPSE 2.46 (<1.7) ESV (Teich) 43.80 mL LV Diastology E Decel Time 313 (160-240 msec) E/A Ratio 1.37 MED A' 11.10 cm/s LAT A' 11.20 cm/s Aortic Valve PRITI Index 1.10 cm2/m2 AoV Peak Doc. 158.0 (50-130 cm/s) AO Peak GR. 10.00 mmHg AO Mean GR. 5.10 (<5 mmHg) AO VTI 31.1 (18-25 cm) PRITI (VTI) 2.41 (2.5-4.5 cm2) Mitral Valve MV A Velocity 47.0 (40-130 cm/s) E/A Ratio 1.37 Pulmonary Valve PV Peak Velocity 82.0 (50-150 cm/s) Tricuspid Valve TR P. Velocity 212.00 cm/s RAP Estimate 10.00 mmHg RVSP 28.00 mmHg Left Ventricle The left ventricle is normal size. Left ventricular systolic function is normal. The left ventricular ejection fraction is within the normal range. There is normal left ventricular wall thickness. There is normal LV segmental wall motion. The left ventricular diastolic function is normal. LVEF is 55% Right Ventricle The right ventricle is mildly dilated. The right ventricular systolic function is normal. Atria The left atrium size is normal. The right atrium size is normal. The interatrial septum is not well visualized. Aortic Valve The aortic valve opens well. There is no hemodynamically significant aortic valvular stenosis. No aortic regurgitation is present. Mitral Valve The mitral valve is normal in structure. No evidence of mitral valve stenosis. Trace mitral regurgitation is present. Tricuspid Valve The tricuspid valve leaflets are thin and pliable. Trace tricuspid regurgitation. There is insufficient TR jet to estimate RVSP. Pulmonic Valve The pulmonary valve is grossly normal in structure. Trace pulmonic valve regurgitation is present. Great Vessels The aortic root is normal in size. IVC is normal in size and collapses >50% with inspiration. Pericardium There is no pericardial effusion. Other Information Study Quality: Fair Conclusion Normal biventricular systolic function. Mild RV dilation. No significant valvular stenosis or regurgitation. In the setting of mild RV dilation, further evaluation with limited TTE plus agitated saline (bubble study), as well as pulmonary/sleep workup, may be suggested, if clinically indicated and feasible. Electronically signed by : Lynn Moreno MD 11/30/2024 21:38:13
== END 2024-11-30 23:59 | disposition home or self-care (01) ==
LOC: RAD 14:29
PROVIDERS: PCP Nurse Practitioner Family; Visit Provider Nurse Practitioner Family
DX: I51.7 Cardiomegaly (principal); E04.2 Nontoxic multinodular goiter; R01.2 Other cardiac sounds
CPT/HCPCS: 76536; 93306